=== PATIENT | male | born 1975 | race Caucasian/White ===

== ENCOUNTER → 2020-04-28 09:18 | Outpatient (BNVA) | payer OTHER, SELFPAY | PROVIDERS: Visit Provider Urology | DX: Z76.89 Persons encountering health services in other specified circumstances (principal) ==

== ENCOUNTER 2020-05-06 06:34 | Outpatient (REF) | payer OTHER, SELFPAY ==
--- NOTE | 2020-05-06 07:58 | MHC.SHP ---
Pre-Procedural Eval Section A The patient is an INPATIENT: No Changes since office visit: No Cold of Flu in the past 2 weeks, No New Medical Problems, No Changes in Medication and No Patient answered all questions The History & Physical has been completed within 30 days and I have reviewed it.: Yes Section B Chief Complaint: cyst of scrotum Allergies: Allergies Allergy/AdvReac Type Severity Reaction Status Date / Time No Known Allergies Allergy Verified 04/28/20 09:26 Plan Patient has been examined and remains a candidate for the planned procedure
[2020-05-06 08:02] VITALS: BMI 32.3
--- NOTE | 2020-05-06 08:24 | PM.OP ---
Brief Operative Note Date of procedure: 05/06/20 Pre-op diagnosis: scrotal senaceous cyst Post-op diagnosis: same Procedure: 1cm sebaceous cyst removal scrotum Surgeon: Sammy Song MD Anesthesia: local Estimated blood loss (mL): 0 Pathology: none sent Condition: stable Disposition: same day
--- NOTE | 2020-05-06 08:36 | W.PM.OPN ---
Operative Note Operative Note Narrative: PreOperative Diagnosis: scrotal cyst Post Operative Diagnosis: scrotal cyst Procedure: excision of scrotal cyst 1 cm Sur[place]: Dr Sammy Song Anesthesia: local Indications for procedure: this is a 44-year-old male. Has a scrotal cyst on dependent portion of scrotum just to left side. Formed after shaving. Likely ingrown hair. Presents today for removal of sebaceous cyst. Risks and benefits have been discussed. Procedure: After informed consent was verified. He was placed on a supine position in the outpatient minus surgical area. He was prepped with Betadine. Towels were placed to elevate his scrotum. 1% lidocaine was infiltrated with a TB syringe using a fan technique. Fifteen blade was used to make an incision over the sebaceous cyst. Sebaceous material was removed. The lining of the cyst was removed. 3.0 plain gut suture confused and 1 new suture placed with adequate control. He tolerated the procedure well Instructions provided that he may shower in 36-48 hours and should avoid submerging his scrotum for 7 days. No pathology
[2020-05-06 09:06] VITALS: BP 122/88; PULSE 79; RESP 16; TEMP 36.4; O2SAT 97
--- NOTE | 2020-05-06 09:21 | PC.NURSE ---
PT VS P- 82 O2 98 RA, R- 16 TEMP 97.5 POST OP. PT GIVEN LEVAQUIN 500MG PO AT 0831. DR. RETANA ORDERED LEVAQUIN POST PROCEDURE.
== END 2020-05-06 06:35 | disposition home or self-care (01) ==
LOC: HO.MS 06:34
PROVIDERS: PCP Internal Medicine; Visit Provider Urology
PROC: (CPT 11421; principal; 2020-05-06 08:10)
DX: L72.3 Sebaceous cyst (principal)
CPT/HCPCS: 11421